=== PATIENT | female | born 1970 | race Caucasian/White ===

== ENCOUNTER 2017-09-04 06:04 | Emergency (ER) | payer MEDICARE ==
[2017-09-04] MEDS ORDERED: Sodium Chloride 0.9% 1000 ML 1,000 ML IV SCH (06:15)
--- NOTE | 2017-09-04 06:15 | ERPHSYRPT ---
- History of Present Illness Source: EMS Exam Limitations: clinical condition (PT WILL NOT ANSWER MY QUESTIONS) <MARNIE MARCUS - Last Filed: 09/04/17 07:33> - History of Present Illness Timing/Duration: hour(s) (3 1/2), sudden Severity: moderate Associated Symptoms: other (communication diffuculty) <MARNIE DODD - Last Filed: 09/04/17 08:55> - History of Present Illness Time Seen by Provider: 09/04/17 06:04 Physician History: REPORTEDLY PT WAS FOUND ON THE FLOOR OF THE TRAILER MOVING HER ARMS AND LEGS BACK AND FORTH WITH CONFUSION THIS AM. PT WILL NOT ANSWER ANY OF MY QUESTIONS. ( MARNIE MARCUS) The history is provided by the patient's roommate who has arrived after Dr. Marcus transferred care to tn. At 4:30 this morning (more than 3 hours ago) the patient screamed from her bedroom. Her friend found her on the floor. The patient was unable to speak clearly at the time. Her normal speech pattern is that of a normal person. The patient went to bed late last night her normal self. Her past medical history is significant for 3 prior strokes when she was in her 20s. She has factor V Leiden and antiphospholipid antibody. She is followed by Dr. Guzman the neurologist in [place]. She also has a history of seizures. As I try to interview the patient, the patient is unable to answer questions with the correct words. She appears to understand directions and tries to follow them. For example when asked to raise her left hand, the patient does so. However, when she is asked a question to which she should needs to answer verbally, the words are garbled and sometimes inappropriate words are used for the answer. She denies pain. (MARNIE DODD) Allergies/Adverse Reactions: codeine Allergy (Verified 09/04/17 07:22) Penicillins Allergy (Verified 09/04/17 07:22) Home Medications: Apixaban [Eliquis] 1 tab PO BID 09/04/17 [History] Gabapentin [Neurontin] 1 tab PO BID 09/04/17 [History] Lamotrigine [Lamictal] 1 tab PO TID 09/04/17 [History] Levothyroxine Sodium 150 Mcg [Synthroid 150 Mcg] 1 tab PO DAILY 09/04/17 [ History] Losartan Potassium [Cozaar] 1 tab PO DAILY 09/04/17 [History] - Review of Systems All Other Systems: Unable due to condition (PT WILL NOT ANSWER ANY OF MY QUESTIONS) <MARNIE MARCUS - Last Filed: 09/04/17 07:33> - Review of Systems Constitutional: No Fever, No Chills Eyes: No Symptoms Ears, Nose, & Throat: No Symptoms Respiratory: No Cough, No Dyspnea Cardiac: No Chest Pain, No Edema, No Syncope Abdominal/Gastrointestinal: No Abdominal Pain, No Nausea, No Vomiting, No Diarrhea Genitourinary Symptoms: No Dysuria Musculoskeletal: No Back Pain, No Neck Pain Skin: No Rash Neurological: Speech Changes Psychological: No Symptoms Endocrine: No Symptoms Hematologic/Lymphatic: No Symptoms Immunological/Allergic: No Symptoms <MARNIE DODD - Last Filed: 09/04/17 08:55> - Past Medical History Neurological History: Stroke Other Medical History: REPORTS BACK PAIN AT 7/10 AT REST; ALSO HAVING CATARACTS - Female History Hx Now: (UNKNOWN) <MARNIE MARCUS - Last Filed: 09/04/17 07:33> - Physical Exam General Appearance: anxiety Eye Exam: other (PERRL) Ears, Nose, Throat Exam: moist mucous membranes Neck Exam: normal inspection Respiratory Exam: lungs clear Cardiovascular Exam: normal heart sounds Gastrointestinal/Abdomen Exam: soft, normal bowel sounds Back Exam: normal inspection, No vertebral tenderness Extremity Exam: normal inspection, No pedal edema Neurologic Exam: other (CONFUSED AND ANXIOUS; NO BABINSKI PRESENT.) Skin Exam: warm, dry <MARNIE MARCUS - Last Filed: 09/04/17 07:33> - Nursing Vital Signs Nursing Vital Signs: Initial Vital Signs Temperature 97 F 09/04/17 06:32 Pulse Rate 96 H 09/04/17 06:32 Respiratory Rate 20 09/04/17 06:32 Blood Pressure 126/81 09/04/17 06:32 O2 Sat by Pulse Oximetry 96 09/04/17 06:32 Pain Scale Pain Intensity 0 - Course Nursing assessment & vital signs reviewed: Yes <MARNIE MARCUS - Last Filed: 09/04/17 07:33> - CT Exams Head CT Interpretation: Tele-radiologist Report, No/Intracranial Hemorrhag, Other ( old multifocal cerebral infarcts, nothing acute per Dr Peraza.) <MARNIE DODD - Last Filed: 09/04/17 08:55> Ordered Tests: Active Orders 24 hr Category Date Time Status Accucheck STAT Care 09/04/17 06:09 Active Building Attendant STAT Care 09/04/17 06:10 Active Catheter-[facility] STAT Care 09/04/17 06:09 Active EKG-ER Only STAT Care 09/04/17 06:09 Active IV Insertion STAT Care 09/04/17 06:09 Active Psychiatric Evaluation STAT Care 09/04/17 06:09 Active Pulse Oximetry (ED) STAT Care 09/04/17 06:09 Active CHEST 1 VIEW (PORTABLE) Stat Exams 09/04/17 06:12 Taken HEAD WITHOUT CONTRAST [CT] Stat Exams 09/04/17 06:09 Taken ACETAMINOPHEN Urgent Lab 09/04/17 06:15 Completed AMYLASE Urgent Lab 09/04/17 06:15 Completed CBC W DIFF Stat Lab 09/04/17 06:25 Completed CMP Urgent Lab 09/04/17 06:15 Completed CULTURE,URINE Stat Lab 09/04/17 07:30 Received ETHYL ALCOHOL Urgent Lab 09/04/17 06:15 Completed HCG QUALITATIVE,SERUM Stat Lab 09/04/17 06:25 Completed LIPASE Urgent Lab 09/04/17 06:15 Completed Lactic Acid Stat Lab 09/04/17 06:26 Completed MAGNESIUM Urgent Lab 09/04/17 06:15 Completed Manual Differential NC Stat Lab 09/04/17 06:25 Completed SALICYLATE Urgent Lab 09/04/17 06:15 Completed TROPONIN Q3H Lab 09/04/17 06:15 Completed TROPONIN Q3H Lab 09/04/17 09:15 Ordered TROPONIN Q3H Lab 09/04/17 12:15 Ordered TROPONIN Q3H Lab 09/04/17 15:15 Ordered TROPONIN Q3H Lab 09/04/17 18:15 Ordered UA W/ MICROSCOPIC Stat Lab 09/04/17 07:30 Completed Urine Triage Profile Stat Lab 09/04/17 06:10 Completed Medication Summary Generic Name Dose Route Start Last Admin Trade Name Freq PRN Reason Stop Dose Admin Sodium Chloride 1,000 mls @ 100 mls/hr 09/04/17 06:15 Sodium Chloride 0.9% 1000 Ml IV 10/04/17 06:14 .Q10H [facility] Lab/Rad Data: Laboratory Result Diagrams 09/04/17 06:25 01/09/18 06:15 Laboratory Results 09/04/17 09/04/17 09/04/17 Range/Units 07:30 06:26 06:25 WBC (4.0-10.5) K/mm3 RBC (4.1-5.4) M/mm3 Hgb (12.0-16.0) gm/dl Hct (35-47) % MCV (78-100) fl MCH (26-32) pg MCHC (32-36) g/dl RDW (11.5-14.0) % Plt Count (150-450) K/mm3 MPV (6-9.5) fl Sodium (136-145) mEq/L Potassium (3.5-5.1) mEq/L Chloride (98-107) mEq/L Carbon Dioxide (21-32) mEq/L Anion Gap (5-15) MEQ/L BUN (9-20) mg/dL Creatinine (0.55-1.30) mg/dl Estimated GFR ML/MIN Glucose (70-110) MG/DL Lactic Acid 1.1 (0.4-2.0) Calcium (8.5-10.1) mg/dL Magnesium (1.8-2.4) mg/dL Total Bilirubin (0.2-1.0) mg/dL AST (15-37) U/L ALT (12-78) U/L Alkaline Phosphatase (46-116) U/L Ammonia 12 (11-32) MMOL/l Troponin I (0.000-0.056) ng/ml Serum Total Protein (6.4-8.2) gm/dL Albumin (3.4-5.0) g/dL Amylase (25-115) U/L Lipase (73-393) U/L Serum , Qual (Negative) Ur Collection Type VOID Urine Color YELLOW (YELLOW) Urine Appearance CLEAR (CLEAR) Urine pH 5.0 (5-6) Ur Specific [place] 1.010 (1.005-1.025) Urine Protein TRACE (Negative) Urine Ketones NEGATIVE (NEGATIVE) Urine Blood 50 (0-5) Sly/ul Urine Nitrite NEGATIVE (NEGATIVE) Urine Bilirubin NEGATIVE (NEGATIVE) Urine Urobilinogen NORMAL (0-1) mg/dL Ur Leukocyte Esterase NEGATIVE (NEGATIVE) Urine Microscopic RBC 2-5 (0-2) /HPF Urine Microscopic WBC 0-2 (0-5) /HPF Ur Epithelial Cells RARE (FEW) /HPF Urine Bacteria RARE (NEGATIVE) /HPF Urine Culture Reflexed YES (NO) Urine Glucose NEGATIVE (NEGATIVE) mg/dL Salicylates (2.8-20.0) mg/dl Urine Opiates Level (NEGATIVE) Ur Methadone (NEGATIVE) Acetaminophen (10-30) ug/ml Urine Barbiturates (NEGATIVE) Ur Phencyclidine (PCP) (NEGATIVE) Urine Amphetamine (NEGATIVE) U Benzodiazepine Level (NEGATIVE) Urine Cocaine (NEGATIVE) Urine Marijuana (THC) (NEGATIVE) Ethyl Alcohol (0.00-0.01) % Specimen Received 09/04/17 0730 09/04/17 09/04/17 09/04/17 Range/Units 06:25 06:25 06:15 WBC 6.4 (4.0-10.5) K/mm3 RBC 3.93 L (4.1-5.4) M/mm3 Hgb 11.2 L (12.0-16.0) gm/dl Hct 34.0 L (35-47) % MCV 86.5 (78-100) fl MCH 28.4 (26-32) pg MCHC 32.9 (32-36) g/dl RDW 12.5 (11.5-14.0) % Plt Count 46 L (150-450) K/mm3 MPV 9.7 H (6-9.5) fl Sodium 139 (136-145) mEq/L Potassium 4.0 (3.5-5.1) mEq/L Chloride 103 (98-107) mEq/L Carbon Dioxide 24.8 (21-32) mEq/L Anion Gap 15.5 H (5-15) MEQ/L BUN 23 H (9-20) mg/dL Creatinine 1.76 H (0.55-1.30) mg/dl Estimated GFR 33 ML/MIN Glucose 95 (70-110) MG/DL Lactic Acid (0.4-2.0) Calcium 9.6 (8.5-10.1) mg/dL Magnesium 1.9 (1.8-2.4) mg/dL Total Bilirubin 0.70 (0.2-1.0) mg/dL AST 20 (15-37) U/L ALT 15 (12-78) U/L Alkaline Phosphatase 87 (46-116) U/L Ammonia (11-32) MMOL/l Troponin I < 0.017 (0.000-0.056) ng/ml Serum Total Protein 7.5 (6.4-8.2) gm/dL Albumin 3.2 L (3.4-5.0) g/dL Amylase 82 (25-115) U/L Lipase 99 (73-393) U/L Serum , Qual NEGATIVE (Negative) Ur Collection Type Urine Color (YELLOW) Urine Appearance (CLEAR) Urine pH (5-6) Ur Specific [place] (1.005-1.025) Urine Protein (Negative) Urine Ketones (NEGATIVE) Urine Blood (0-5) Sly/ul Urine Nitrite (NEGATIVE) Urine Bilirubin (NEGATIVE) Urine Urobilinogen (0-1) mg/dL Ur Leukocyte Esterase (NEGATIVE) Urine Microscopic RBC (0-2) /HPF Urine Microscopic WBC (0-5) /HPF Ur Epithelial Cells (FEW) /HPF Urine Bacteria (NEGATIVE) /HPF Urine Culture Reflexed (NO) Urine Glucose (NEGATIVE) mg/dL Salicylates 4.6 (2.8-20.0) mg/dl Urine Opiates Level (NEGATIVE) Ur Methadone (NEGATIVE) Acetaminophen < 2.0 L (10-30) ug/ml Urine Barbiturates (NEGATIVE) Ur Phencyclidine (PCP) (NEGATIVE) Urine Amphetamine (NEGATIVE) U Benzodiazepine Level (NEGATIVE) Urine Cocaine (NEGATIVE) Urine Marijuana (THC) (NEGATIVE) Ethyl Alcohol < 0.010 (0.00-0.01) % Specimen Received 09/04/17 Range/Units 06:10 WBC (4.0-10.5) K/mm3 RBC (4.1-5.4) M/mm3 Hgb (12.0-16.0) gm/dl Hct (35-47) % MCV (78-100) fl MCH (26-32) pg MCHC (32-36) g/dl RDW (11.5-14.0) % Plt Count (150-450) K/mm3 MPV (6-9.5) fl Sodium (136-145) mEq/L Potassium (3.5-5.1) mEq/L Chloride (98-107) mEq/L Carbon Dioxide (21-32) mEq/L Anion Gap (5-15) MEQ/L BUN (9-20) mg/dL Creatinine (0.55-1.30) mg/dl Estimated GFR ML/MIN Glucose (70-110) MG/DL Lactic Acid (0.4-2.0) Calcium (8.5-10.1) mg/dL Magnesium (1.8-2.4) mg/dL Total Bilirubin (0.2-1.0) mg/dL AST (15-37) U/L ALT (12-78) U/L Alkaline Phosphatase (46-116) U/L Ammonia (11-32) MMOL/l Troponin I (0.000-0.056) ng/ml Serum Total Protein (6.4-8.2) gm/dL Albumin (3.4-5.0) g/dL Amylase (25-115) U/L Lipase (73-393) U/L Serum , Qual (Negative) Ur Collection Type Urine Color (YELLOW) Urine Appearance (CLEAR) Urine pH (5-6) Ur Specific [place] (1.005-1.025) Urine Protein (Negative) Urine Ketones (NEGATIVE) Urine Blood (0-5) Sly/ul Urine Nitrite (NEGATIVE) Urine Bilirubin (NEGATIVE) Urine Urobilinogen (0-1) mg/dL Ur Leukocyte Esterase (NEGATIVE) Urine Microscopic RBC (0-2) /HPF Urine Microscopic WBC (0-5) /HPF Ur Epithelial Cells (FEW) /HPF Urine Bacteria (NEGATIVE) /HPF Urine Culture Reflexed (NO) Urine Glucose (NEGATIVE) mg/dL Salicylates (2.8-20.0) mg/dl Urine Opiates Level NEG. (NEGATIVE) Ur Methadone NEG. (NEGATIVE) Acetaminophen (10-30) ug/ml Urine Barbiturates NEG. (NEGATIVE) Ur Phencyclidine (PCP) NEG. (NEGATIVE) Urine Amphetamine NEG. (NEGATIVE) U Benzodiazepine Level NEG. (NEGATIVE) Urine Cocaine NEG. (NEGATIVE) Urine Marijuana (THC) NEG. (NEGATIVE) Ethyl Alcohol (0.00-0.01) % Specimen Received <MARNIE MARCUS - Last Filed: 09/04/17 07:33> - Progress Progress: improved Counseled pt/family regarding: lab results, diagnosis, rad results <MARNIE DODD - Last Filed: 09/04/17 08:55> - Progress Progress Note: 09/04/17 08:00 Pt care discussed and care accepted from Dr Marcus at 07:30. (MARNIE DODD) <MARNIE MARCUS - Last Filed: 09/04/17 07:33> - Departure Time of Disposition: 08:46 Departure Disposition: Transfer (Transfer to [facility] ER per Dr Sebastian for DR Guzman.) Critical Care Time: No <MARNIE DODD - Last Filed: 09/04/17 08:55> - Departure Clinical Impression: Stroke Condition: Stable Referrals: SILVIA FIORE MD [ACTIVE STAFF] -
[2017-09-04 06:46] LABS: Granulocyte Absolute (ANC) 4.93 (1.4-6.9); Hemoglobin 11.2 gm/dl (12.0-16.0); Mean Cell Volume 86.5 fl (78-100); Mean Corpuscular Hgb Concent. 32.9 g/dl (32-36); Mean Platelet Volume 9.7 fl (6-9.5); Platelet Count 46 K/mm3 (150-450); Red Blood Count 3.93 M/mm3 (4.1-5.4); Red Cell Distribution Width 12.5 % (11.5-14.0); White Blood Count 6.4 K/mm3 (4.0-10.5)
[2017-09-04 07:07] LABS: ALBUMIN 3.2 g/dL (3.4-5.0); ALKALINE PHOSPHATASE 87 U/L (46-116); AMYLASE 82 U/L (25-115); ANION GAP 15.5 MEQ/L (5-15); BLOOD UREA NITROGEN 23 mg/dL (9-20); CHLORIDE 103 mEq/L (98-107); Calcium 9.6 mg/dL (8.5-10.1); Carbon Dioxide 24.8 mEq/L (21-32); Creatinine 1 1.76 mg/dl (0.55-1.30); EST GLOMERULAR FILTRATION RATE 33 ML/MIN; ETHYL ALCOHOL < 0.010 % (0.00-0.01); Glucose 95 MG/DL (70-110); LIPASE 99 U/L (73-393); MAGNESIUM 1.9 mg/dL (1.8-2.4); SALICYLATE 4.6 mg/dl (2.8-20.0); SGPT/ALT 15 U/L (12-78); SODIUM 139 mEq/L (136-145); Total Protein 7.5 gm/dL (6.4-8.2)
[2017-09-04 07:10] LABS: Mean Corpuscular Hemoglobin 28.4 pg (26-32)
[2017-09-04 07:21] LABS: SGOT/AST 20 U/L (15-37)
[2017-09-04 07:22] LABS: ACETAMINOPHEN < 2.0 ug/ml (10-30); TROPONIN < 0.017 ng/ml (0.000-0.056)
[2017-09-04 07:39] VITALS: O2SAT 98
[2017-09-04 08:03] LABS: Amphetamine,Urine NEG. (NEGATIVE); Barbiturate,Urine NEG. (NEGATIVE); Benzodiazepine,Urine NEG. (NEGATIVE); Cocaine,Urine NEG. (NEGATIVE); Methadone,Urine NEG. (NEGATIVE); Opiate,Urine NEG. (NEGATIVE); PCP,Urine NEG. (NEGATIVE); THC,Urine NEG. (NEGATIVE)
[2017-09-04 08:10] LABS: Appearance CLEAR (CLEAR); Bilirubin NEGATIVE (NEGATIVE); Blood 50 Ery/ul (0-5); Glucose NEGATIVE (NEGATIVE); Ketones NEGATIVE (NEGATIVE); Leukocyte Esterase NEGATIVE (NEGATIVE); Nitrite NEGATIVE (NEGATIVE); Protein,Urine Dip TRACE (Negative); Urobilinogen NORMAL mg/dL (0-1)
[2017-09-04 08:18] LABS: Bacteria RARE /HPF (NEGATIVE); Epithelial Cells RARE /HPF (FEW); WBC 0-2 /HPF (0-5)
[2017-09-04] MEDS ORDERED: Ativan 2 MG/1 ML VIAL IV ONE (09:20)
[2017-09-04] MEDS ORDERED: Ativan 2 MG/1 ML VIAL ONE (09:25)
[2017-09-04 09:36] VITALS: BP 142/99; PULSE 78
--- NOTE | 2017-09-04 09:45 | XRAY ---
Indication: Confusion. Comparison: None Portable chest clear. Heart and mediastinal structures within normal limits. Bony thorax intact. Impression: Nonacute chest.
--- NOTE | 2017-09-04 09:47 | XRAY ---
Indication: Confusion. History of stroke. Multiple contiguous axial images obtained through the head without contrast. Comparison: None There are multifocal old bilateral cerebral infarcts, largest in the left parietal lobe posteriorly. No acute intracranial hemorrhage, hydrocephalus, or mass effect. Fourth ventricle is midline. Bony calvarium intact. Visualized paranasal sinuses and mastoid air cells are clear. Impression: Multifocal old bilateral cerebral infarcts. No acute intracranial abnormalities. MRI may yield further information if there remains further clinical concern. CTDI 70.91
== END 2017-09-04 10:05 | disposition short-term general hospital (02) ==
LOC: ED 06:04
DX: I63.9 Cerebral infarction, unspecified (principal)
CPT/HCPCS: 93041; 96374; 99285; 36000; 51702; 82962; 82150; 81000; 36415; 84703; 83690; 83735; 82140; 80307 ×2; 85025; 80053; 84484; 87086; 71045; 70450; 83605; G0481 ×2; J2060

== ENCOUNTER 2017-09-26 13:18 | Emergency (ER) | payer MEDICARE ==
[2017-09-26] MEDS ORDERED: Sodium Chloride 0.9% 1000 ML 1,000 ML IV SCH (13:45)
[2017-09-26 13:52] LABS: BASOPHIL % 0.8 % (0.0-0.4); Basophil (Absolute #) 0.06 (0-0.4); Eosinophil % 2.1 % (0.00-5.0); Eosinophil (Absolute #) 0.15 (0-0.5); Granulocyte Absolute (ANC) 5.96 (1.4-6.9); Granulocytes % 84.1 % (36.0-66.0); Hematocrit 29.5 % (35-47); Hemoglobin 9.3 gm/dl (12.0-16.0); Lymphocyte (Absolute #) 0.49 (1.0-4.6); Lymphocytes % 6.9 % (24.0-44.0); Mean Cell Volume 87.5 fl (78-100); Mean Corpuscular Hgb Concent. 31.5 g/dl (32-36); Mean Platelet Volume 9.7 fl (6-9.5); Monocyte (Absolute #) 0.43 (0.0-1.3); Monocytes % 6.1 % (0.0-12.0); Platelet Count 64 K/mm3 (150-450); Red Blood Count 3.37 M/mm3 (4.1-5.4); Red Cell Distribution Width 12.4 % (11.5-14.0); White Blood Count 7.1 K/mm3 (4.0-10.5)
[2017-09-26] MEDS ORDERED: Sodium Chloride 0.9% 1000 ML 1,000 ML ONE (13:52)
--- NOTE | 2017-09-26 13:52 | ERPHSYRPT ---
- History of Present Illness Time Seen by Provider: 09/26/17 13:44 Source: patient, other (significant other) Exam Limitations: clinical condition Patient Subjective Stated Complaint: FRIEND STATES PT THIS MORNING WOKE UP AT 1000 THIS MORNING AND NOTICED PT WAS WEAK. FRIEND STATES SHE DID FALL THIS MORNING. FRIEND STATES PT HAS HAD SEVERAL CVA'S. LAST CVA SEPTEMBER 04, 2017. PT IN SPEACH THERAPY TODAY BEGAN HAVING TREMORS IN RIGHT HAND AND WEAKNESS. FRIEND STATES SPEACH HAS BEEN THE SAME. Triage Nursing Assessment: PT PINK, WARM, DRY. PT ALERT. SPEACH DELAYED. PUPILS PERRL. PT AFEBRILE. OLD BRUISE NOTED TO RIGHT LATERAL THIGH. RIGHT ARM TREMORING. LEFT HAND PROOFSHEET CORRECTOR NORMAL. Physician History: This is a 46-year-old white female with a history of a CVA and right-sided weakness apparently left stroke was September 04 she is brought therapy patient was apparently noticed to be weak this morning she had apparently fallen earlier today. She was noted to have increased tremulousness in her right hand by speech therapy patient has chronic complaint of low back pain. Chronic pain in her right side. On arrival patient is alert she opens her eyes to command she moves to command speech is essentially unintelligible She is weak her right hand which apparently is chronic for her. Patient is apparently onEloquis Past medical history includes CVA, back pain, cataracts, high blood pressure. Past surgical history includes cholecystectomy rotator cuff bilateral knee arthroplasty Timing/Duration: today (just prior to arrival patient was noted to have increased tremulousness in her right hand. Patient fell this morning before 10: 00) Severity: moderate Modifying Factors: Improves With: nothing Associated Symptoms: other (increased tremulousness in her right hand), No nausea, No vomiting, No abdominal pain, No shortness of breath, No heartburn, No diaphoresis, No cough, No chills, No chest pain, No fever, No headaches, No loss of appetite, No malaise, No rash, No syncope, No seizure, No weakness Allergies/Adverse Reactions: codeine Allergy (Verified 09/26/17 13:39) Penicillins Allergy (Verified 09/26/17 13:39) Home Medications: Apixaban [Eliquis] 1 tab PO BID 09/04/17 [History] Gabapentin [Neurontin] 600 tab PO TID 09/04/17 [History] Lamotrigine [Lamictal] 1 tab PO TID 09/04/17 [History] Levothyroxine Sodium 150 Mcg [Synthroid 150 Mcg] 1 tab PO DAILY 09/04/17 [ History] Losartan Potassium [Cozaar] 1 tab PO DAILY 09/04/17 [History] Hx Tetanus, Diphtheria Vaccination/Date Given: Yes (UP TO DATE) Hx Influenza Vaccination/Date Given: No Hx Pneumococcal Vaccination/Date Given: No Immunizations Up to Date: Yes - Review of Systems Constitutional: No Fever, No Chills Eyes: No Symptoms Ears, Nose, & Throat: No Symptoms Respiratory: No Cough, No Dyspnea Cardiac: No Chest Pain, No Edema, No Syncope Abdominal/Gastrointestinal: No Abdominal Pain, No Nausea, No Vomiting, No Diarrhea Genitourinary Symptoms: No Dysuria Musculoskeletal: No Back Pain, No Neck Pain Skin: No Rash Neurological: Other (increased tremulousness in her right hand, patient with recent cva) Psychological: No Symptoms Endocrine: No Symptoms All Other Systems: Reviewed and Negative - Past Medical History Pertinent Past Medical History: Yes Neurological History: Stroke, TIA Cardiac History: High Cholesterol Respiratory History: No Pertinent History Endocrine Medical History: Hypothyroidism Other Medical History: REPORTS BACK PAIN AT 7/10 AT REST; ALSO HAVING CATARACTS - Past Surgical History Past Surgical History: Yes Gastrointestinal: Cholecystectomy Musculoskeletal: Orthopedic Surgery Other Surgical History: unknown surgical history - Social History Smoking Status: Former smoker Exposure to second hand smoke: No Drug Use: none Patient Lives Alone: No - Female History Hx Now: No - Nursing Vital Signs Nursing Vital Signs: Initial Vital Signs Temperature 98.4 F 09/26/17 13:19 Pulse Rate 104 H 09/26/17 13:19 Respiratory Rate 20 09/26/17 13:19 Blood Pressure 129/80 09/26/17 13:19 O2 Sat by Pulse Oximetry 100 09/26/17 13:19 Pain Scale Pain Intensity 2 - Physical Exam General Appearance: no apparent distress, alert Eye Exam: PERRL/EOMI, eyes nml inspection Ears, Nose, Throat Exam: normal ENT inspection, TMs normal, pharynx normal, moist mucous membranes Neck Exam: normal inspection, non-tender, supple, full range of motion Respiratory Exam: normal breath sounds, lungs clear, No respiratory distress Cardiovascular Exam: regular rate/rhythm, normal heart sounds, normal peripheral pulses Gastrointestinal/Abdomen Exam: soft Back Exam: other (chronic back pain) Extremity Exam: normal inspection, normal range of motion, pelvis stable Neurologic Exam: alert, other (patient oriented to self opens her eyes to command 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 New bilateral cerebral acute i. No acute hemorrhage or significant mass effect. 2. Stable multifocal old bilateral cerebral infarcts) Cervical Spine CT Interpretation: Discussed w/radiologist (CT cervical spine impression 1. Negative acute fracure/ subluxation. 2. Cervical lordotic straightening positional versus paraspinal spasm. 3 minimal degenerative change) Ordered Tests: Active Orders 24 hr Category Date Time Status EKG-ER Only STAT Care 09/26/17 13:44 Active IV Insertion STAT Care 09/26/17 13:44 Active Pulse Oximetry (ED) STAT Care 09/26/17 13:44 Active CERVICAL SPINE WO CONTRAST [CT] Stat Exams 09/26/17 13:46 Completed HEAD WITHOUT CONTRAST [CT] Stat Exams 09/26/17 13:45 Completed CBC W DIFF Stat Lab 09/26/17 13:50 Completed CMP Stat Lab 09/26/17 13:50 Completed HCG QUALITATIVE,SERUM Stat Lab 09/26/17 13:50 Completed PROTIME WITH INR Stat Lab 09/26/17 13:50 Completed PTT Stat Lab 09/26/17 13:50 Completed Medication Summary Generic Name Dose Route Start Last Admin Trade Name Freq PRN Reason Stop Dose Admin Sodium Chloride 1,000 mls @ 100 mls/hr 09/26/17 13:45 09/26/17 13:53 Sodium Chloride 0.9% 1000 Ml IV 10/26/17 13:44 100 mls/hr .Q10H YVONNE Administration Lab/Rad Data: Laboratory Result Diagrams 09/26/17 13:50 09/26/17 13:50 Laboratory Results 09/26/17 09/26/17 09/26/17 Range/Units 13:50 13:50 13:50 WBC (4.0-10.5) K/mm3 RBC (4.1-5.4) M/mm3 Hgb (12.0-16.0) gm/dl Hct (35-47) % MCV (78-100) fl MCH (26-32) pg MCHC (32-36) g/dl RDW (11.5-14.0) % Plt Count (150-450) K/mm3 MPV (6-9.5) fl Gran % (36.0-66.0) % Lymphocytes % (24.0-44.0) % Monocytes % (0.0-12.0) % Eosinophils % (0.00-5.0) % Basophils % (0.0-0.4) % Basophils # (0-0.4) INR 1.58 (0.8-3.0) APTT 113.1 H* (25.3-37.0) SECONDS Sodium 139 (136-145) mEq/L Potassium 4.5 (3.5-5.1) mEq/L Chloride 106 (98-107) mEq/L Carbon Dioxide 25.0 (21-32) mEq/L Anion Gap 12.8 (5-15) MEQ/L BUN 33 H (9-20) mg/dL Creatinine 2.18 H (0.55-1.30) mg/dl Estimated GFR 26 ML/MIN Glucose 100 (70-110) MG/DL Calcium 9.4 (8.5-10.1) mg/dL Total Bilirubin 0.50 (0.2-1.0) mg/dL AST 25 (15-37) U/L ALT 31 (12-78) U/L Alkaline Phosphatase 87 (46-116) U/L Serum Total Protein 7.7 (6.4-8.2) gm/dL Albumin 3.2 L (3.4-5.0) g/dL Serum , Qual NEGATIVE (Negative) Slides for Path Review 09/26/17 Range/Units 13:50 WBC 7.1 (4.0-10.5) K/mm3 RBC 3.37 L (4.1-5.4) M/mm3 Hgb 9.3 L (12.0-16.0) gm/dl Hct 29.5 L (35-47) % MCV 87.5 (78-100) fl MCH 27.5 (26-32) pg MCHC 31.5 L (32-36) g/dl RDW 12.4 (11.5-14.0) % Plt Count 64 L (150-450) K/mm3 MPV 9.7 H (6-9.5) fl Gran % 84.1 H (36.0-66.0) % Lymphocytes % 6.9 L (24.0-44.0) % Monocytes % 6.1 (0.0-12.0) % Eosinophils % 2.1 (0.00-5.0) % Basophils % 0.8 (0.0-0.4) % Basophils # 0.06 (0-0.4) INR (0.8-3.0) APTT (25.3-37.0) SECONDS Sodium (136-145) mEq/L Potassium (3.5-5.1) mEq/L Chloride (98-107) mEq/L Carbon Dioxide (21-32) mEq/L Anion Gap (5-15) MEQ/L BUN (9-20) mg/dL Creatinine (0.55-1.30) mg/dl Estimated GFR ML/MIN Glucose (70-110) MG/DL Calcium (8.5-10.1) mg/dL Total Bilirubin (0.2-1.0) mg/dL AST (15-37) U/L ALT (12-78) U/L Alkaline Phosphatase (46-116) U/L Serum Total Protein (6.4-8.2) gm/dL Albumin (3.4-5.0) g/dL Serum , Qual (Negative) Slides for Path Review YES - Progress Progress: improved Progress Note: 09/26/17 15:[address] of the head shows new bilateral cerebral acute ischemia there is a new large area of left mid to posterior parietal lobe subcortical cytotoxic edema favoring acute ischemia also a new focus of acute ischemia in the right posterior parietal lobe there is no acute intracranial hemorrhage hydrocephalus or mass effect I've discussed the case initially with Dr. Keating at [facility] ER she place me in contact with neurologist at [facility] he requests that the patient be given IV normal saline trying to keep her blood pressure around 140 he will have the hospitalist contact me for transfer. We did try to transfer patient to [facility] where the patient's neurologist Dr. Rivera was unfortunately there was no neurologist available at [facility] today. Will await hospitalist call back and anticipate transfer. 09/26/17 16:33 Case is discussed with Dr. MEENAKSHI Barrientos, hospitalist at [facility], he has accepted patient for transfer to the stroke unit. Transfer center will call back with a bed and a number to call report. - Departure Time of Disposition: 16:34 Departure Disposition: Transfer ([facility], Dr Prabhjot Barrientos) Clinical Impression: Stroke Qualifiers: CVA mechanism: embolism Precerebral and cerebral artery: unspecified precerebral artery Qualified Code(s): I63.10 - Cerebral infarction due to embolism of unspecified precerebral artery Condition: Fair Critical Care Time: No Referrals: YEYO MENDEZ [Primary Care Provider] -
[2017-09-26 13:54] LABS: Mean Corpuscular Hemoglobin 27.5 pg (26-32)
[2017-09-26 14:08] LABS: INR 1.58 (0.8-3.0)
[2017-09-26 14:13] LABS: ALBUMIN 3.2 g/dL (3.4-5.0); ANION GAP 12.8 MEQ/L (5-15); BILIRUBIN,TOTAL 0.5 mg/dL (0.2-1.0); Calcium 9.4 mg/dL (8.5-10.1); Creatinine 1 2.18 mg/dl (0.55-1.30); Potassium 4.5 mEq/L (3.5-5.1); Total Protein 7.7 gm/dL (6.4-8.2)
[2017-09-26 14:21] LABS: Slide Review 1 YES
--- NOTE | 2017-09-26 14:41 | XRAY ---
Indication: Status post fall. Multiple contiguous axial images obtained through the head without contrast. Comparison: September 04, 2017. There are again multifocal old bilateral cerebral infarcts. New large area of left mid to posterior parietal lobe subcortical cytotoxic edema favoring acute ischemia. Also new smaller focus of acute ischemia in the right posterior parietal lobe. No acute intracranial hemorrhage, hydrocephalus, or mass effect. Fourth ventricle is midline. Bony calvarium intact. Visualized paranasal sinuses and mastoid air cells are clear. Impression: 1. New bilateral cerebral acute ischemias as detailed. No acute hemorrhage or significant mass effect. 2. Stable multifocal old bilateral cerebral infarcts. CTDI 62.02
[2017-09-26 14:45] LABS: PTT 113.1 SECONDS (25.3-37.0)
--- NOTE | 2017-09-26 14:46 | XRAY ---
Indication: Status post fall. History of strokes. Multiple contiguous axial images obtained through the cervical spine. Sagittal and coronal reformatted images obtained. Comparison: None Axial images negative for acute fracture, suspicious bony lesions, or spinal canal stenosis. Minimal bilateral degenerative facet arthropathy. Sagittal and coronal reformatted images demonstrates straightening of the cervical lordosis, positional versus paraspinal spasm. Minimal C5-C6 disc space narrowing. No acute compression fracture, subluxation, or jumped facet. Normal appearing craniocervical junction. Visualized noncontrasted soft tissues including lung apices unremarkable. CT head reported separately. Impression: 1. Negative acute fracture/subluxation. 2. Cervical lordotic straightening, positional versus paraspinal spasm. 3. Minimal degenerative changes. CT DI 23.85
[2017-09-26 17:13] VITALS: BP 106/80; PULSE 82; O2SAT 98
== END 2017-09-26 17:40 | disposition short-term general hospital (02) ==
LOC: ED 13:18
DX: I63.9 Cerebral infarction, unspecified (principal); Z86.73 Personal history of transient ischemic attack (TIA), and cerebral infarction without residual deficits; W19.XXXA Unspecified fall, initial encounter; Z79.899 Other long term (current) drug therapy; M54.9 Dorsalgia, unspecified
CPT/HCPCS: 36000; 36415; 70450; 72125; 80053; 84703; 85025; 85610; 85730; 93005; 96360; 96361; 99285

== ENCOUNTER 2018-02-19 21:29 | Emergency (ER) | payer MEDICARE ==
--- NOTE | 2018-02-19 22:02 | ERPHSYRPT ---
- History of Present Illness Time Seen by Provider: 02/19/18 21:52 Source: other (domestic partner) Exam Limitations: other (aphasia) Physician History: This patient has been diagnosed with stroke in 08/2017, treated in [place]. She was transferred to [facility] yesterday for rehabilitaion. She is unable to give any history due to aphasia, her partner is c/o bruises appeared on her right upper arm and right ankle over the past few days. 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 Timing/Duration: day(s) (1) Severity: mild Modifying Factors: Improves With: nothing Associated Symptoms: denies symptoms Allergies/Adverse Reactions: codeine Allergy (Verified 02/19/18 22:09) Penicillins Allergy (Verified 02/19/18 22:09) Home Medications: Gabapentin [Neurontin] 600 tab PO TID 09/04/17 [History] Levothyroxine Sodium 150 Mcg [Synthroid 150 Mcg] 1 tab PO DAILY 09/04/17 [ History] Losartan Potassium [Cozaar] 1 tab PO DAILY 09/04/17 [History] Aspirin 81 gm Chew [Baby Aspirin 81 mg Chew] 81 mg PO DAILY 02/19/18 [ History] Atorvastatin Calcium [Lipitor 20MG Tablet] 20 mg PO DAILY 02/19/18 [History] Enoxaparin Sodium [Lovenox] 100 mg SQ 02/19/18 [History] Ferrous Sulfate 325 mg PO 02/19/18 [History] Metoprolol Succinate 50 mg [Toprol Xl 50 MG] 50 mg PO DAILY 02/19/18 [ History] Nortriptyline HCl 50 mg PO DAILY 02/19/18 [History] Phenytoin Sodium Extended [Dilantin] 200 mg PO DAILY 02/19/18 [History] lamoTRIgine [Lamotrigine] 200 mg PO BID 02/19/18 [History] Hx Tetanus, Diphtheria Vaccination/Date Given: Yes (UP TO DATE) Hx Influenza Vaccination/Date Given: No Hx Pneumococcal Vaccination/Date Given: No - Review of Systems Skin: Other (bruises) All Other Systems: Unable due to condition - Past Medical History Pertinent Past Medical History: Yes Neurological History: Stroke, TIA Cardiac History: High Cholesterol Respiratory History: No Pertinent History Endocrine Medical History: Hypothyroidism Other Medical History: REPORTS BACK PAIN AT 7/10 AT REST; ALSO HAVING CATARACTS - Past Surgical History Past Surgical History: Yes Gastrointestinal: Cholecystectomy Musculoskeletal: Orthopedic Surgery Other Surgical History: unknown surgical history - Social History Smoking Status: Former smoker Exposure to second hand smoke: No Drug Use: none Patient Lives Alone: No - Female History Hx Now: No - Nursing Vital Signs Nursing Vital Signs: Initial Vital Signs Temperature 99.5 F 02/19/18 21:33 Pulse Rate 85 02/19/18 21:33 Respiratory Rate 20 02/19/18 21:33 Blood Pressure 147/81 02/19/18 21:33 O2 Sat by Pulse Oximetry 99 02/19/18 21:33 Pain Scale Pain Intensity 2 - Physical Exam General Appearance: no apparent distress, alert Eye Exam: eyes nml inspection Ears, Nose, Throat Exam: normal ENT inspection, moist mucous membranes Neck Exam: normal inspection, non-tender, supple, No JVD Respiratory Exam: normal breath sounds, lungs clear, airway intact Cardiovascular Exam: regular rate/rhythm, normal heart sounds, normal peripheral pulses, No murmur Gastrointestinal/Abdomen Exam: soft, normal bowel sounds, No tenderness, No distention, No mass, No ecchymosis Back Exam: normal inspection, No CVA tenderness Extremity Exam: normal inspection, other (few days old 5-6 cm subcutenous hematoma of the posterior upper humerus, similar but smaller ( 2-3 cm) hematoma of the right uypper, anteromedial humerus, no skin redness, edema, but the skin is generally mottled ( according to her partner this is chronic due to her blood disorder), right lareal ankle is also swollen, subcutaneous hematoma felt , no deformity, good distal pulses.) Neurologic Exam: alert Skin Exam: warm, dry, other (mottled), No rash Lymphatic Exam: No adenopathy SpO2 Interpretation: normal Oxygen Delivery: Room Air - Course Nursing assessment & vital signs reviewed: Yes - Radiology Exams Right Humerus X-ray Interpretation: Interpreted by me, Negative Right Ankle X-ray Interpretation: Interpreted by me, Negative Ordered Tests: Active Orders 24 hr Category Date Time Status ANKLE (3 VIEWS) Stat Exams 02/19/18 21:55 Taken HUMERUS Stat Exams 02/19/18 21:54 Taken CBC W DIFF Stat Lab 02/19/18 21:52 Completed CK-Creatinine Phosphokinase Stat Lab 02/19/18 22:20 Completed CMP Stat Lab 02/19/18 22:20 Completed CULTURE,URINE Stat Lab 02/19/18 23:15 Received PROTIME WITH INR Stat Lab 02/19/18 22:20 Completed PTT Stat Lab 02/19/18 22:20 Completed UA W/ MICROSCOPIC Stat Lab 02/19/18 23:15 Completed Lab/Rad Data: Laboratory Result Diagrams 02/19/18 21:52 02/19/18 22:20 Laboratory Results 02/19/18 02/19/18 02/19/18 Range/Units 23:15 22:20 22:20 WBC (4.0-10.5) K/mm3 RBC (4.1-5.4) M/mm3 Hgb (12.0-16.0) gm/dl Hct (35-47) % MCV (78-100) fl MCH (26-32) pg MCHC (32-36) g/dl RDW (11.5-14.0) % Plt Count (150-450) K/mm3 MPV (6-9.5) fl Gran % (36.0-66.0) % Eos # (Auto) (0-0.5) Absolute Lymphs (auto) (1.0-4.6) Absolute Monos (auto) (0.0-1.3) Lymphocytes % (24.0-44.0) % Monocytes % (0.0-12.0) % Eosinophils % (0.00-5.0) % Basophils % (0.0-0.4) % Absolute Granulocytes (1.4-6.9) Basophils # (0-0.4) PT 13.5 H (9.95-12.35) SECONDS INR 1.16 (0.8-3.0) APTT 83.8 H (25.3-37.0) SECONDS Sodium 135 L (137-145) mmol/L Potassium 4.4 (3.5-5.1) mmol/L Chloride 99 (98-107) mmol/L Carbon Dioxide 28 (22-30) mmol/L Anion Gap 11.8 (5-15) MEQ/L BUN 26 H (7-17) mg/dL Creatinine 1.73 H (0.52-1.04) mg/dL Estimated GFR 33.6 ML/MIN Glucose 96 (74-106) mg/dL Calcium 9.0 (8.4-10.2) mg/dL Total Bilirubin 0.30 (0.2-1.3) mg/dL AST 29 (14-36) U/L ALT 28 (0-35) U/L Alkaline Phosphatase 141 H (38-126) U/L Creatine Kinase 37 (30-135) U/L Serum Total Protein 7.9 (6.3-8.2) g/dL Albumin 3.7 (3.5-5.0) g/dL Ur Collection Type VOID Urine Color LT.YELLOW (YELLOW) Urine Appearance HAZY (CLEAR) Urine pH 5.0 (5-6) Ur Specific Scroggins 1.010 (1.005-1.025) Urine Protein 100 (Negative) Urine Ketones NEGATIVE (NEGATIVE) Urine Blood 250 (0-5) Sly/ul Urine Nitrite NEGATIVE (NEGATIVE) Urine Bilirubin NEGATIVE (NEGATIVE) Urine Urobilinogen NORMAL (0-1) mg/dL Ur Leukocyte Esterase NEGATIVE (NEGATIVE) Urine Microscopic RBC 10-15 (0-2) /HPF Urine Microscopic WBC 10-15 (0-5) /HPF Ur Epithelial Cells RARE (FEW) /HPF Urine Bacteria FEW (NEGATIVE) /HPF Urine Culture Reflexed YES (NO) Urine Glucose NEGATIVE (NEGATIVE) mg/dL Specimen Received 02/19/18 2315 02/19/18 Range/Units 21:52 WBC 4.5 (4.0-10.5) K/mm3 RBC 3.39 L (4.1-5.4) M/mm3 Hgb 10.2 L (12.0-16.0) gm/dl Hct 30.4 L (35-47) % MCV 89.7 (78-100) fl MCH 30.0 (26-32) pg MCHC 33.6 (32-36) g/dl RDW 15.7 H (11.5-14.0) % Plt Count 57 L (150-450) K/mm3 MPV 9.3 (6-9.5) fl Gran % 71.5 H (36.0-66.0) % Eos # (Auto) 0.13 (0-0.5) Absolute Lymphs (auto) 0.61 L (1.0-4.6) Absolute Monos (auto) 0.45 (0.0-1.3) Lymphocytes % 13.7 L (24.0-44.0) % Monocytes % 10.1 (0.0-12.0) % Eosinophils % 2.9 (0.00-5.0) % Basophils % 1.8 (0.0-0.4) % Absolute Granulocytes 3.18 (1.4-6.9) Basophils # 0.08 (0-0.4) PT (9.95-12.35) SECONDS INR (0.8-3.0) APTT (25.3-37.0) SECONDS Sodium (137-145) mmol/L Potassium (3.5-5.1) mmol/L Chloride (98-107) mmol/L Carbon Dioxide (22-30) mmol/L Anion Gap (5-15) MEQ/L BUN (7-17) mg/dL Creatinine (0.52-1.04) mg/dL Estimated GFR ML/MIN Glucose (74-106) mg/dL Calcium (8.4-10.2) mg/dL Total Bilirubin (0.2-1.3) mg/dL AST (14-36) U/L ALT (0-35) U/L Alkaline Phosphatase (38-126) U/L Creatine Kinase (30-135) U/L Serum Total Protein (6.3-8.2) g/dL Albumin (3.5-5.0) g/dL Ur Collection Type Urine Color (YELLOW) Urine Appearance (CLEAR) Urine pH (5-6) Ur Specific Scro[place]ins (1.005-1.025) Urine Protein (Negative) Urine Ketones (NEGATIVE) Urine Blood (0-5) Sly/ul Urine Nitrite (NEGATIVE) Urine Bilirubin (NEGATIVE) Urine Urobilinogen (0-1) mg/dL Ur Leukocyte Esterase (NEGATIVE) Urine Microscopic RBC (0-2) /HPF Urine Microscopic WBC (0-5) /HPF Ur Epithelial Cells (FEW) /HPF Urine Bacteria (NEGATIVE) /HPF Urine Culture Reflexed (NO) Urine Glucose (NEGATIVE) mg/dL Specimen Received - Progress Progress: unchanged Progress Note: 02/19/18 23:40 I discussed lab results with patient and her partner, her platelet count is 57, coag. parameters are normal, X ray reports are negative, she is being transferred back to rehab in good condition to follow up with her doctor. Counseled pt/family regarding: lab results, diagnosis, need for follow-up - Departure Time of Disposition: 23:42 Departure Disposition: Home Clinical Impression: Hematoma Condition: Stable Critical Care Time: No Referrals: TONEY DOE MD [Primary Care Provider] - Instructions: Contusion (DC) Additional Instructions: Apply ice or cold compresses to bruises, return if severe pain, swelling, fever > 102 F! Follow up with her physician in 2-3 days!
[2018-02-19 22:24] LABS: BASOPHIL % 1.8 % (0.0-0.4); Basophil (Absolute #) 0.08 (0-0.4); Eosinophil % 2.9 % (0.00-5.0); Eosinophil (Absolute #) 0.13 (0-0.5); Granulocyte Absolute (ANC) 3.18 (1.4-6.9); Granulocytes % 71.5 % (36.0-66.0); Hematocrit 30.4 % (35-47); Hemoglobin 10.2 gm/dl (12.0-16.0); Lymphocyte (Absolute #) 0.61 (1.0-4.6); Lymphocytes % 13.7 % (24.0-44.0); Mean Cell Volume 89.7 fl (78-100); Mean Corpuscular Hgb Concent. 33.6 g/dl (32-36); Mean Platelet Volume 9.3 fl (6-9.5); Monocyte (Absolute #) 0.45 (0.0-1.3); Monocytes % 10.1 % (0.0-12.0); Platelet Count 57 K/mm3 (150-450); Red Blood Count 3.39 M/mm3 (4.1-5.4); Red Cell Distribution Width 15.7 % (11.5-14.0); White Blood Count 4.5 K/mm3 (4.0-10.5)
[2018-02-19 22:42] LABS: ALBUMIN 3.7 g/dL (3.5-5.0); ANION GAP 11.8 MEQ/L (5-15); BILIRUBIN,TOTAL 0.3 mg/dL (0.2-1.3); Creatinine 1 1.73 mg/dL (0.52-1.04); Potassium 4.4 mmol/L (3.5-5.1); Total Protein 7.9 g/dL (6.3-8.2)
[2018-02-19 22:59] LABS: INR 1.16 (0.8-3.0)
[2018-02-19 23:02] LABS: PTT 83.8 SECONDS (25.3-37.0)
[2018-02-19 23:09] VITALS: BP 144/97; PULSE 86; O2SAT 98
[2018-02-19 23:31] LABS: Appearance HAZY (CLEAR); Bilirubin NEGATIVE (NEGATIVE); Blood 250 Ery/ul (0-5); Glucose NEGATIVE (NEGATIVE); Ketones NEGATIVE (NEGATIVE); Leukocyte Esterase NEGATIVE (NEGATIVE); Nitrite NEGATIVE (NEGATIVE); Protein,Urine Dip 100 (Negative); Urobilinogen NORMAL mg/dL (0-1)
[2018-02-19 23:34] LABS: Bacteria FEW /HPF (NEGATIVE); Epithelial Cells RARE /HPF (FEW)
[2018-02-19 23:47] LABS: Slide Review 1 YES
--- NOTE | 2018-02-20 22:19 | XRAY ---
Exam: 2 views of the right humerus from 02/19/2017. Comparison: None. Indication: Status post CVA in August,, hematoma within proximal right arm, factor 5 deficiency, antiphospholipid antibody disorder. Findings: Internal rotation and external rotation images of the right humerus were obtained. No acute fracture or other focal bone lesion. There are at least a half a dozen surgical clips projected over the region of the medial epicondyle of the distal right humerus. Correlate with prior surgical history. No other bone abnormality is seen. No soft tissue foreign body or soft tissue calcifications are seen. No other significant soft tissue abnormality is evident radiographically. Impression: 1. No acute fracture or other focal bone lesion of the right humerus is seen. 2. At least 6 small surgical clips are seen adjacent to the medial epicondyles of the distal right humerus. Correlate with prior surgical history.
--- NOTE | 2018-02-20 22:23 | XRAY ---
Exam: 3 views of the right ankle from 02/19/2018. Comparison: None. Indication: Lateral right ankle bruising and edema, factor V deficiency and antiphospholipid antibody disorder. Findings: AP, oblique, and crosstable lateral views of the right ankle were obtained. I see no acute fracture or dislocation. The right ankle mortise is well-preserved and reveals smooth articular margins. There is mild soft tissue prominence/swelling overlying the lateral malleolus. No other focal bone lesion is seen involving the distal right tibia or fibula. There is a mild plantar right calcaneal spur. No radiopaque soft tissue foreign body is seen. Impression: 1. Mild soft tissue prominence/swelling overlying the lateral malleolus of the right ankle. 2. No underlying fracture or dislocation of the right ankle is seen. 3. Mild plantar right calcaneal spur.
== END 2018-02-20 00:10 ==
LOC: ED 21:29
DX: S40.021A Contusion of right upper arm, initial encounter (principal); S90.01XA Contusion of right ankle, initial encounter; I69.320 Aphasia following cerebral infarction; D68.51 Activated protein C resistance; D68.61 Antiphospholipid syndrome; Z79.82 Long term (current) use of aspirin; Z79.899 Other long term (current) drug therapy
CPT/HCPCS: 36415; 73060; 73610; 80053; 81000; 82550; 85025; 85610; 85730; 87086; 99284; P9612